=== PATIENT | female | born 1945 | race Caucasian/White ===

== ENCOUNTER 2017-06-04 05:40 | Observation (INO) | payer BC ==
[2017-06-02 10:24] LABS: BASOPHILS 0.3 %; BASOPHILS ABSOLUTE 0.02 10/3/uL (0.0-0.16); EOSINOPHILS ABSOLUTE 0.38 10/3/uL (0.0-0.53); HEMATOCRIT 41.2 % (36.0-48.0); HEMOGLOBIN 13.2 g/dL (12.0-16.0); IMMATURE GRANULOCYTES 0.2 %; IMMATURE GRANULOCYTES ABSOLUTE 0.01 10/3/uL (0.0-0.11); LYMPHOCYTES 25.4 %; MEAN CORPUSCULAR HEMOGLOB 27.9 pg (26.0-34.0); MEAN CORPUSCULAR VOLUME 87.1 fL (80-100); MEAN PLATELET VOLUME 10.4 fL (9.2-13.0); MONOCYTES 7.3 %; MONOCYTES ABSOLUTE 0.46 10/3/uL (0.21-1.20); NEUTROPHILS 60.8 %; NEUTROPHILS ABSOLUTE 3.83 10/3/uL (2.02-8.40); PLATELET COUNT 237 10/3/uL (150-400); RBC DISTRIBUTION WIDTH 14.8 % (12.0-16.0); RED CELL COUNT 4.73 10/6/uL (4.0-5.6); WHITE BLOOD CELLS 6.3 10/3/uL (4.5-10.5)
[2017-06-02 10:27] LABS: INTERNATIONAL NORMAL RATI 1.1 UNITS (-); PROTIME (NOT ORD) 13.9 SEC (12.0-14.5)
[2017-06-02 10:29] LABS: MANUAL DIFF NO %
[2017-06-02 10:41] LABS: A/G RATIO 0.7 (0.7-1.9); ALBUMIN 3.4 G/DL (3.5-5.0); ALKALINE PHOSPHATASE 129 U/L (45-117); BUN (BLOOD UREA NITROGEN) 15 MG/DL (6-23); CALCIUM, SERUM 8.8 MG/DL (8.5-10.4); CHLORIDE, SERUM 112 MMOL/L (96-112); CO2 (CARBON DIOXIDE) 23 MMOL/L (24-34); CREATININE 0.63 MG/DL (0.55-1.02); GFR AFRICAN AMERICAN 105 ML/MIN (>=60); GFR NON AFRICAN AMERICAN 91 ML/MIN (>=60); GLOBULIN 4.8 G/DL (2.5-4.1); GLUCOSE, SERUM 98 MG/DL (60-99); POTASSIUM, SERUM 4.1 MMOL/L (3.5-5.3); SGOT(AST) 63 U/L (5-40); SGPT(ALT) 38 U/L (5-65); SODIUM, SERUM 142 MMOL/L (135-148); TOTAL BILIRUBIN 0.9 MG/DL (0-1.2); TOTAL PROTEIN 8.2 G/DL (6.0-8.5)
[~2017-06-04] VITALS: Ht 142.2 cm; Wt 72.1 kg
--- NOTE | ~2017-06-04 | OP ---
Record Of Operation [facility] [address] [place]. [address] NAME: RADHA ROMERO : 49 STATUS : ADM IN PAT#: [id number] AGE: 72 ADM/REG DATE : 06/04/17 MR#: [id number] REPORT SERV DATE: 06/05/17 DICTATED BY: BRIGITTE BOWERS JR. DATE: 06/04/17 REPORT STATUS : Draft TRANSCRIBED BY: MODL DATE: 06/04/17 DATE OF PROCEDURE: 06/04/2017 PREOPERATIVE DIAGNOSIS: History of breast cancer, AP window versus left upper lobe mass, indeterminate mass, rule out metastatic disease versus lung primary. POSTOPERATIVE DIAGNOSIS: Pathology pending. NAME OF OPERATION: Bronchoscopy, left robotic-assisted thoracoscopy with mediastinal node sampling, an incisional biopsy of left upper lobe mass, intercostal nerve block. RESIDENT SURGEON: Dr. Cardoza. MOTORCYCLE RACER: Esdras Reina. ANESTHESIA: General endotracheal. ANESTHESIOLOGIST: Claude Barfield. FINDINGS: Given the patient's short body habitus, we were unable to place a left-sided double-lumen endotracheal tube. We used a bronchial gilmar, which functioned well. There was no endobronchial lesion seen on bronchoscopy. Upon exploration of the left chest, there was a mass that was more adherent to the visceral pleura of the left upper lobe medially and extended down on to the main pulmonary artery. There appeared to be a dissection plane this area, but it would take a left upper lobectomy to remove this mass. Margins would certainly be close given that there appeared to be gross tumor sitting on the pulmonary artery. It was felt this was not resectable without at least a left upper lobe being performed. Given the uncertainty of this tumor and/or if it was a tumor, we elected to do an incisional biopsy of this mass. Adequate tissue was obtained. She had very bland tumor cells. Dr. Marion did not feel he could make a diagnosis on frozen section and needs to look at her previous breast cancer as well as further stains. Because of this, we elected to stop. There was some celia tissue in the AP region that was also sent, which was benign. DETAILS OF OPERATION: After adequate general anesthesia, the patient was intubated. Bronchoscopy was performed noting no endobronchial lesions. A bronchial gilmar was placed with the balloon in the left mainstem bronchus. The patient was left in the supine position where the chest was prepped and draped in routine sterile fashion. A lateral trocar incision was then made with dissection carried out into the chest cavity. Trocar and camera were introduced under direct visualization. We then switched the robotic camera and placed the remaining trocar sites. Chest cavity was extremely small and the space was narrow. We were able easily to identify the mass. Dissection in this area revealed this was going to take a lobectomy to remove the mass and our margins to be questionable given that it was sitting right on top of the pulmonary artery. An excisional biopsy was performed demonstrating the above findings. Some other scattered nodes in this regions were removed. This was performed utilizing biopsy forceps as well as dissecting tools such as the bipolar instrument, Bipolar [place] Dissector. Adequate hemostasis was then obtained. An Record Of Operation [facility] [id number] [place]. [address] NAME: RADHA ROMERO : 49 STATUS : ADM IN [facility]#: [id number] AGE: 72 ADM/REG DATE : 06/04/17 MR#: [id number] REPORT SERV DATE: 06/05/17 DICTATED BY: BRIGITTE BOWERS JR. DATE: 06/04/17 REPORT STATUS : Draft TRANSCRIBED BY: MODSherry DATE: 06/04/17 intercostal nerve block was performed. A 28-Slovenian chest tube was placed and the lung was reinflated. The trocar sites were closed with running Vicryl sutures. The skin was closed with running monofilament suture. A Dermabond dressing was applied. The procedure was terminated at this point. The patient tolerated the procedure well and was taken back to recovery room in stable condition. DAMION/MYLA Brigitte Bowers Jr., M.D. / [id number] CC: Troy Rae Jr., MD Benjamin R Nadeau, MD William Cockerham, M.D. MIRANDA NOBLE, APN
[~2017-06-04 05:40] MED LIST: ACET500CAP PO; ADVIL PO
[2017-06-05 07:19] LABS: BASOPHILS 0.1 %; BASOPHILS ABSOLUTE 0.01 10/3/uL (0.0-0.16); EOSINOPHILS 0 %; HEMATOCRIT 36.1 % (36.0-48.0); HEMOGLOBIN 11.6 g/dL (12.0-16.0); IMMATURE GRANULOCYTES 0.2 %; IMMATURE GRANULOCYTES ABSOLUTE 0.03 10/3/uL (0.0-0.11); LYMPHOCYTES 9.3 %; LYMPHOCYTES ABSOLUTE 1.27 10/3/uL (0.67-4.30); MANUAL DIFF NO %; MEAN CORPUS HGB CONC 32.1 g/dL (32.0-36.0); MEAN CORPUSCULAR HEMOGLOB 27.8 pg (26.0-34.0); MEAN CORPUSCULAR VOLUME 86.4 fL (80-100); MEAN PLATELET VOLUME 10.8 fL (9.2-13.0); MONOCYTES 6.3 %; MONOCYTES ABSOLUTE 0.87 10/3/uL (0.21-1.20); NEUTROPHILS 84.1 %; NEUTROPHILS ABSOLUTE 11.53 10/3/uL (2.02-8.40); PLATELET COUNT 221 10/3/uL (150-400); RBC DISTRIBUTION WIDTH 15.4 % (12.0-16.0); RED CELL COUNT 4.18 10/6/uL (4.0-5.6); WHITE BLOOD CELLS 13.7 10/3/uL (4.5-10.5)
[2017-06-05 07:28] LABS: CALCIUM, SERUM 8.2 MG/DL (8.5-10.4); CHLORIDE, SERUM 109 MMOL/L (96-112); CO2 (CARBON DIOXIDE) 20 MMOL/L (24-34); CREATININE 0.94 MG/DL (0.55-1.02); GFR AFRICAN AMERICAN 71 ML/MIN (>=60); GFR NON AFRICAN AMERICAN 61 ML/MIN (>=60); GLUCOSE, SERUM 107 MG/DL (60-99); POTASSIUM, SERUM 4.7 MMOL/L (3.5-5.3); SODIUM, SERUM 139 MMOL/L (135-148)
[2017-06-05 07:32] LABS: BUN (BLOOD UREA NITROGEN) 21 MG/DL (6-23)
[2017-06-05] MEDS ORDERED: MIRALAX POWDER1 PKT PO (09:23)
[2017-06-05] MEDS ORDERED: PCET PO (09:23)
== END 2017-06-05 14:15 | disposition home or self-care (01) ==
LOC: ENRESERV → ENRESERVDT → ENRESERVTM → SDC 05:40 → 5NO 13:00 → ENPENDDIS 13:00 → SDC/OF 13:00 → 5NO 14:34
PROVIDERS: Thoracic Surgery (Cardiothoracic Vascular Surgery)
PROC: 07B74ZZ Excision of Thorax Lymphatic, Percutaneous Endoscopic Approach (ICD-10-PCS; principal; 2017-06-04 07:30)
DX: C78.02 Secondary malignant neoplasm of left lung (principal); R59.0 Localized enlarged lymph nodes; E66.9 Obesity, unspecified; Z85.3 Personal history of malignant neoplasm of breast; Z88.0 Allergy status to penicillin; Z90.710 Acquired absence of both cervix and uterus; Z98.890 Other specified postprocedural states
CPT/HCPCS: 36415; 71020; 80048; 80053; 82962; 85025; 85610; 86850; 86900; 86901; 87641; 88305; 88331; 88341; 88342; 88360; 93005; 94640; 96372; 96374; A9270-GY; G0378; J1580; J2250; J2370; J2405; J2710; J2795; J3010; J3370